=== PATIENT | male | born 1950 | race Hispanic/Latino ===

== ENCOUNTER 2016-06-12 06:04 | Day surgery (SDC) | payer MEDICAID ==
[2016-06-05 08:10] VITALS: BMI 26.4
[2016-06-12] MEDS ORDERED: Methylene Blue 10 mg/ml (1ml) Inj ONE (07:54)
[2016-06-12] MEDS ORDERED: Strong Iodine Topical Sol. 5%-10% ONE (07:57)
[2016-06-12] MEDS ORDERED: Propofol 10 mg/ml Inj (20 ML) ONE ×2 (08:02→08:30)
[2016-06-12] MEDS ORDERED: Midazolam 2 MG/2 ML VIAL ONE (08:02)
[2016-06-12] MEDS ORDERED: Lidocaine 2% Inj (20ml) ONE (08:14)
[2016-06-12] MEDS ORDERED: Lactated Ringer's 1,000 ML IV SCH (08:52)
[2016-06-12 10:04] VITALS: BP 127/79; PULSE 67; RESP 16; TEMP 98.2; O2SAT 99
== END 2016-06-12 11:00 | disposition home or self-care (01) ==
LOC: ENDO 06:04
PROVIDERS: ATTEND Internal Medicine
DX: K22.10 Ulcer of esophagus without bleeding (principal); T50.995A Adverse effect of other drugs, medicaments and biological substances, initial encounter; K29.50 Unspecified chronic gastritis without bleeding; D12.3 Benign neoplasm of transverse colon; K64.8 Other hemorrhoids; Z85.01 Personal history of malignant neoplasm of esophagus; Z12.11 Encounter for screening for malignant neoplasm of colon
CPT/HCPCS: 43239; 45381; 45385; 88305; 88312; 88342; J2250; J2704; J7040; J7120